=== PATIENT | female | born 1955 | race Caucasian/White ===

== ENCOUNTER → 2018-01-26 | Outpatient (CLI) | payer OTHER ==
--- NOTE | 2018-01-26 16:49 | RAD ---
EXAM DESCRIPTION: Radiographs of the right Shoulder: CLINICAL HISTORY: PAIN COMPARISON: None TECHNIQUE: AP internal external rotation images. FINDINGS: No fracture right shoulder. Normal bone density. AC joint narrowing. Downsloping of the lateral acromion. Glenohumeral joint intact. No abnormal radiodense objects in the soft tissues or joint spaces. IMPRESSION: Narrowing of the right AC joint and downsloping of the lateral acromion which can narrowing the supraspinatus tendon outlet. No acute bony abnormality. Electronically signed by: Tobin Aburto MD 01/26/2018 4:48 PM CDT
== END ==
LOC: RAD 15:14
PROVIDERS: ATTEND Nurse Practitioner Family
DX: M25.519 Pain in unspecified shoulder (principal)

== ENCOUNTER → 2019-11-01 | Outpatient (CLI) | payer MEDICARE, OTHER ==
--- NOTE | 2019-11-02 09:24 | MRI ---
EXAM DESCRIPTION: Cervical Spine: MRI. CLINICAL HISTORY: 64 years Female CERVICAL DISC DISORDER WITH RADICULOPATHY UNSPEC CERVICAL REGION COMPARISON: MRI scan without contrast cervical spine January 2007 (prior to fusion surgery TECHNIQUE: Multiplanar, high-field MRI, multiple sequences, non-contrast Cervical spine. FINDINGS: C5-C6: ACDF with no abnormal marrow or soft tissue edema or fluid collection. No other hardware complications. Left uncinate spur. Partial fusion of facets. Left neural foraminal stenosis. Mild to moderate right neural foraminal narrowing. Focal hyperintense T2 and STIR signal in the ventral cord just anterior to the central canal. C6-C7: Partial osseous fusion of the disc space, predominantly posterior. Posterior bony projection from the disc space abutting the cord with borderline central canal stenosis. Bilateral moderate neural foraminal narrowing more left than right. Normal signal in the cord. Circumscribed hyperintense T1 and T2 hemangioma in the left superior C7 vertebral body. C3-C4: Disc desiccation with 2 mm grade 1 anterolisthesis. Posterior midline disc bulge almost abutting the cord. Moderate canal narrowing. Left uncinate spur. Bilateral hypertrophic arthrosis in the facet joints. Mild right neural foraminal narrowing and left neural foraminal stenosis. This has progressed since the prior study. C4-C5: Disc desiccation and trace anterolisthesis with minimal disc space loss. Tiny posterior bulge. Bilateral hypertrophic facet arthrosis more on the left. Left uncinate spur. Left neural foraminal stenosis. Mild narrowing of the right neural foramen. Unfavorable interval change since the prior study. C7-T1: 3 mm grade 1 anterolisthesis. Disc desiccation and disc space maintained. Posterior broad-based disc bulge abutting the cord. Posterior hypertrophic flavum ligaments. Borderline mild central canal stenosis. Bilateral hypertrophic facet arthrosis more on the left. Mild to moderate right neural foraminal narrowing with moderate to severe left neural foraminal narrowing. This has progressed since the prior study. Hyperintense circumscribed T1 and T2 hemangioma in the superior left T1 vertebral body. T1-T2: Disc desiccation and tiny posterior bulge. Left lateral and anterior hypertrophic endplate. Bilateral moderate neural foraminal narrowing. This is progressed since the prior study. Normal signal in the C2-C3 disc with no bulging. Disc space preserved. Canal and neural foramina are patent. Facet joint unremarkable on the right with degenerative hypertrophy on the left. Spinal alignment reduced lordosis below C3.. No cord edema signal at other levels.. Atlantoaxial joint mild arthrosis and hypertrophy predominantly to the right of midline.. Base of the cerebellar tonsils is at the level of the foramen magnum. Paravertebral soft tissues 7 mm cyst in the left thyroid lobe.. Vertebral bodies are not compressed at any level. Otherwise normal marrow signal in the remaining vertebral bodies and the posterior elements. IMPRESSION: 1. ACDF C5-C6 with no hardware complications. Minimal cord edema on the ventral aspect, anterior to the central canal. Left neural foraminal stenosis has progressed since the prior study (which was prior to hardware fusion). 2. Partial osseous disc space fusion C6-C7 since the prior study. Borderline central canal stenosis at the level of the posterior disc space fusion. Bilateral moderate neural foraminal narrowing. 3. C3-C4 anterolisthesis, bulging disc, and left neural foraminal stenosis. This has progressed since the prior study. 4. C7-T1 anterolisthesis. Multifactorial borderline mild central canal stenosis. Moderate severe left neural foraminal narrowing has progressed since the prior study.. Electronically signed by: Tobin Aburto MD 11/02/2019 9:22 AM CDT
== END ==
LOC: MRI 10:37
PROVIDERS: ATTEND Nurse Practitioner Family
DX: M50.11 Cervical disc disorder with radiculopathy, high cervical region (principal); M48.02 Spinal stenosis, cervical region; M48.03 Spinal stenosis, cervicothoracic region; R60.9 Edema, unspecified; Z98.1 Arthrodesis status; M43.12 Spondylolisthesis, cervical region; M43.13 Spondylolisthesis, cervicothoracic region

== ENCOUNTER → 2019-12-01 | Outpatient (CLI) | payer MEDICARE, OTHER ==
--- NOTE | 2019-12-01 15:42 | MRI ---
EXAM DESCRIPTION: Lumbar Spine w/o Contrast : Magnetic Resonance Imaging. CLINICAL HISTORY: M54.5 COMPARISON: None. TECHNIQUE: Multiplanar, multiple standard sequences, non contrast MRI, lumbar spine. FINDINGS: L5-S1: The fused disc space is well visualized on axial T2 series 501, image 3. Interbody fusion device is almost completely encapsulated by bony material. Minimal canal narrowing. Bilateral facet joints are partially fused. Bilateral L5 and S1 fusion screws are customary position with no definite loosening. Unilateral connecting rods. No complications. No tissue fluid collections around the hardware. Mild to moderate left foraminal narrowing and moderate to severe right foraminal narrowing. The right L5 pedicle screw is abutting the superior right foramen. L4-L5: Disc space maintained with disc desiccation. Grade 1 anterolisthesis 2 mm. No disc bulge. Degenerative hypertrophy of the posterior flavum ligaments and facet joints (canal elements) more left than right. AP canal diameter 7 mm. Moderate to severe bilateral foraminal narrowing. L3-L4: Moderate to severe disc space loss with superior and inferior endplate Schmorl's nodes. Anterior disc osteophyte bulge. Posterior broad-based disc bulge with posterior midline and right paracentral 6 mm protrusion containing hyperintense T2 annular fissure. Moderate degenerative hypertrophy of the canal elements. AP canal diameter 5 mm. Left subarticular recess narrowing and right moderate to severe bilateral foraminal narrowing. Subarticular recess stenosis. L2-L3: Disc desiccation with minimal disc space loss. Posterior broad-based bulge. Trace anterolisthesis. Moderate degenerative hypertrophy of the canal elements. AP canal diameter 6 mm. Moderate narrowing of the left foramen and severe narrowing of the right foramen. L1-L2: Disc desiccation and minimal disc space loss. Superior endplate Schmorl's node. Moderate degenerative hypertrophy of the canal elements. AP canal diameter 12 mm. Mild bilateral foraminal narrowing. T12-L1: Disc desiccation with old Schmorl's nodes superior and inferior. No posterior bulging. Minimal degenerative hypertrophy of the canal elements. Mild canal narrowing. Bilateral foramina are patent. Conus terminates at the mid L1 level. L2-L4 levoscoliosis with compensatory curvature above and below. Paravertebral soft tissues possible 2.2 cm cyst superior posterior cortex left kidney.. Distal cord normal signal and caliber. Normal marrow signal in the remaining vertebral bodies and the posterior elements. Vertebral bodies are not compressed at any level. IMPRESSION: 1. L5-S1 bilateral posterior fusion with no complications. Multiple levels of degenerated and bulging discs, degenerative hypertrophy of the posterior flavum ligaments and facet joints. 2. Multifactorial mild to moderate central canal stenosis at L4-L5 with minimal anterolisthesis and severe bilateral foraminal narrowing. 3. Posterior midline and right L3-L4 and disc protrusion with annular fissure. Severe central canal stenosis and moderate to severe right foraminal narrowing and right subarticular recess stenosis. 4. Multifactorial severe central canal stenosis L2-L3. Please see above findings for details and other disc space levels. Electronically signed by: Tobin Aburto MD 12/01/2019 3:40 PM CDT
== END ==
LOC: MRI 12:32
PROVIDERS: ATTEND Psychiatry & Neurology Neurology
DX: M51.36 Other intervertebral disc degeneration, lumbar region (principal); M51.26 Other intervertebral disc displacement, lumbar region; M48.061 Spinal stenosis, lumbar region without neurogenic claudication; M43.16 Spondylolisthesis, lumbar region; M46.96 Unspecified inflammatory spondylopathy, lumbar region; M24.28 Disorder of ligament, vertebrae; Z98.1 Arthrodesis status

== ENCOUNTER → 2020-01-26 | Outpatient (CLI) | payer MEDICARE ==
--- NOTE | 2020-01-26 11:47 | RAD ---
Frontal, lateral, and oblique views of the left hand. Indication:PAIN IN LEFT HAND Comparison: None. Impression: Mild narrowing of the PIP and DIP joints of the hand as well as the first MCP joint and first IP joint indicating mild osteoarthritis. No acute fracture or osseous erosions. Millimetric remote ulnar styloid avulsion fracture suspected, likely chronic/remote. Mild distal radioulnar joint osteoarthritis. Soft tissues are intact without radiopaque foreign body. Electronically signed by: Hai Rubio MD 01/26/2020 11:46 AM CDT
--- NOTE | 2020-01-26 11:48 | RAD ---
Frontal, lateral, and oblique views of the right hand. Indication:PAIN IN RIGHT HAND Comparison: None. Impression: Mild narrowing of the PIP and DIP joints of the right hand as well as the first MCP joint and first IP joint indicating mild osteoarthritis. No acute fracture or osseous erosions. Millimetric remote ulnar styloid avulsion fracture suspected, likely chronic/remote. Mild distal radioulnar joint osteoarthritis. Trace negative ulnar variance. Soft tissues are intact without radiopaque foreign body. Electronically signed by: Hai Rubio MD 01/26/2020 11:46 AM CDT
== END ==
LOC: RAD 08:57
PROVIDERS: ATTEND Orthopaedic Surgery
DX: M25.841 Other specified joint disorders, right hand (principal); M25.842 Other specified joint disorders, left hand; M89.9 Disorder of bone, unspecified; M19.032 Primary osteoarthritis, left wrist; M19.031 Primary osteoarthritis, right wrist